=== PATIENT | male | born 1960 | race Caucasian/White ===

== ENCOUNTER → 2020-12-27 | Outpatient (CLI) | payer OTHER ==
[~2020-12-27] MED LIST: ASPIRIN325 MG PO; ATORVASTATIN CA40 MG PO; CARDIZEM CD240 MG PO; FLOMAX0.4 MG PO; LOPRESSOR 25 MG25 MG PO; NICOTINE PATCH1 EAC2 TD; NITROSTAT0.4 MG SL; PROVENTIL HFA6.7 GM INH; RANEXA1000 MG PO; RANOLAZINE ER1000 MG PO; SUBOXONE 8 MG-1 EACH SL; VALIUM10 MG PO; ZOFRAN4 MG PO
== END ==
LOC: HEART 5 09:38
DX: Z01.810 Encounter for preprocedural cardiovascular examination (principal); R07.89 Other chest pain; I25.10 Atherosclerotic heart disease of native coronary artery without angina pectoris
CPT/HCPCS: 93306

== ENCOUNTER → 2021-01-31 | Outpatient (CLI) | payer OTHER | LOC: HEART 5 13:50 | DX: R00.2 Palpitations (principal) ==